=== PATIENT | female | born 1955 | race Caucasian/White ===

== ENCOUNTER 2017-08-15 09:02 | Emergency (ER) | payer BC ==
[2017-08-15 10:01] VITALS: BP 116/51
--- NOTE | 2017-08-15 10:26 | UC ---
Nausea/Vomiting/Diarrhea HPI - HPI Summary HPI Summary: 62 y/o female with PMHX Depression presents to the urgent care c/o diarrhea for the past week. Pt reports symptoms started with mild cramping pain and then the diarrhea. She though at the beginning it was a viral infection., but now everything she eats she has a watery BM. Pt states she has about 5-6 BM during. She is feeling weak with decrease appetite. She has been drinking water. Pt denies recent travel outside the country, or hiking, eating outside, no sick contacts. She denies fever, abdominal pain, blood in the stool, N/V, weight lost , urinary symptoms, Hx of STD's. - History of Current Complaint Chief Complaint: UCGeneralIllness Stated Complaint: DIARRHEA FATIGUE Time Seen by Provider: 08/15/17 09:57 Hx Obtained From: Patient Onset/Duration: Gradual Onset, Lasting Weeks - 1 week Timing: Intermittent Episodes Lasting: - few minutes Severity Initially: Mild Severity Currently: Moderate Pain Intensity: 2 - cramping abdominal pain at times Pain Scale Used: 0-10 Numeric Location: Other - cramping abdominal pain at times then the diarrhea Character: Cramping Aggravating Factor(s): Food Alleviating Factor(s): Bowel Movement Nausea/Vomiting Presence: None Diarrhea Presence: Yes Diarrhea Frequency: Daily - 5-6 episodes after eating Diarrhea Characteristics: Watery - Risk Factors Influenza Risk Factors: Negative Surgical Obstruction Risk Factor(s): Negative - Allergies/Home Medications Allergies/Adverse Reactions: Allergies Allergy/AdvReac Type Severity Reaction Status Date / Time No Known Allergies Allergy Verified 08/15/17 09:55 Home Medications: Home Medications Citalopram TAB* [CeleXA TAB*] 10 mg PO DAILY 08/15/17 [History Confirmed ] Ibuprofen TAB* [Advil TAB*] 400 mg PO Q6H PRN 08/15/17 [History Confirmed ] PMH/Surg Hx/FS Hx/Imm Hx Previously Healthy: Yes Psychological History: Depression - Surgical History Surgical History: None - Family History Known Family History: Positive: Hypertension, Diabetes - Social History Occupation: Employed Full-time Lives: With Family Alcohol Use: None Substance Use Type: None Smoking Status (MU): Never Smoked Tobacco - Immunization History Most Recent Influenza Vaccination: 2017 Review of Systems Constitutional: Fatigue Skin: Negative Eyes: Negative ENT: Negative Respiratory: Negative Cardiovascular: Negative Gastrointestinal: Abdominal Pain - abdominal cramping pain at times relief w/ BM , Diarrhea Genitourinary: Negative Motor: Negative Neurovascular: Negative Musculoskeletal: Negative Neurological: Negative Psychological: Negative Is Patient Immunocompromised?: No All Other Systems Reviewed And Are Negative: Yes Physical Exam Triage Information Reviewed: Yes Vital Signs: Initial Vital Signs Temp 98.9 F 08/15/17 09:56 Pulse 82 08/15/17 09:56 Resp 18 08/15/17 09:56 BP 116/51 08/15/17 09:56 - Additional Comments Vital Signs Reviewed: Yes Eyes: Positive: Conjunctiva Clear - PERRLA, EOMI, fundi grossly normal ENT: Positive: Normal ENT inspection, Hearing grossly normal, Pharynx normal, TMs normal Neck: Positive: Supple, Nontender, No Lymphadenopathy Respiratory: Positive: Chest non-tender, Lungs clear, Normal breath sounds, No respiratory distress Cardiovascular: Positive: RRR, No Murmur, Pulses Normal, Brisk Capillary Refill Abdomen Description: Positive: Nontender, Other: - Abd: Flat with no distention. No surface trauma, scars, incisions. hyperactive bowel sounds present in all four quadrants. No tenderness, guarding, rigidity to palpation. No masses palpated, no pulsation in epigastric area. No organomegaly. Negative Navarre signs. No periumbilical tenderness. No rebound in the lower quadrants. NT over McBurneys point. Left side suprapubic tenderness with no distension. Good femoral pulses bilaterally. No hernia noted. No CVAT bilaterally Bowel Sounds: Positive: Present, Hyperactive Musculoskeletal: Positive: Strength Intact, ROM Intact, No Edema Neurological Exam: Normal Psychological Exam: Normal Skin Exam: Normal Naus/Vom/Diarrhea Course/Dx - Course Course Of Treatment: 62 y/o female with PMHX Depression presents to the urgent care c/o diarrhea for the past week. Pt reports symptoms started with mild cramping pain and then the diarrhea. She though at the beginning it was a viral infection., but now everything she eats she has a watery BM. Pt states she has about 5-6 BM during. She is feeling weak with decrease appetite. She has been drinking water. Pt denies recent travel outside the country, or hiking, eating outside, sick contacts. She denies fever, abdominal pain, blood in the stool, N/ V, weight lost, urinary symptoms, Hx of STD's. Hx obtained. PE: WNL - Differential Dx/Diagnosis Differential Diagnoses - Female: Appendicitis, Diverticulitis, Irritable Bowel Syndrome, Ulcerative Colitis/Crohn's Disease, Gastroenteritis (Viral), Gastroenteritis (Bacterial), Diarrhea, Colitis, Gastritis Provider Diagnoses: 1- Acute diarrhea. 2-Gastroenteritis Condition At Discharge: Stable Discharge - Discharge Plan Condition: Stable Disposition: HOME Prescriptions: Loperamide CAP* [Imodium CAP*] 2 mg PO SEE INSTRUCTIONS #12 cap MDD 16mg/day Patient Education Materials: Gastroenteritis (ED) Referrals: [facility] [Outside] Additional Instructions: 1- Please increase fluid intake with Pedialyte OTC or Gatorade to avoid dehydration. Eat soft meals, and rest 2-Take Loperamide PO as directed to alleviate diarrhea 3- If he develops fever or abdominal pain please go to the ER for further evaluation and treatment 4- Stool culture will be sent to lab to r/o any abnormality, you will be notify of any abnormality. 5-Please f/u with your PCP for full blood work and further management
== END 2017-08-15 10:47 | disposition home or self-care (01) ==
LOC: UCCORT 09:02
DX: K52.9 Noninfective gastroenteritis and colitis, unspecified (principal); R53.83 Other fatigue; F32.9 Major depressive disorder, single episode, unspecified
CPT/HCPCS: 83630; 87045; 87046; 87077; 87328; 87329; 87425; 87899; 99202; G0463